=== PATIENT | female | born 1990 | race Caucasian/White ===

== ENCOUNTER 2016-07-15 10:08 | Emergency (ER) | payer MEDICAID ==
[~2016-07-15] VITALS: Ht 154.9 cm; Wt 90.9 kg
[~2016-07-15 10:08] MED LIST: CLEOCIN HC150 MG/CAP PO; CLONAZEPAM PO; DARVOCET N 101 UDTAB PO; DOXYCYCLINE 10100 MG PO; FLEXERIL10 MG PO; FLEXERIL5 MG PO; GENTAMICIN EYE D5 ML OS; KLONOPIN 0.5MG0.5 MG PO; LORTAB 5/500 501 TAB; LORTAB 5/500 501 TAB PO; MACROBID 1100 MG/CAP PO; NKDA; NO HOME MEDICATIONS; PERCOCET 325 MG1 TA2 PO; PHENERGAN 25 TA25 MG PO; PHENERGAN W/CO120 ML PO; PREDNISONE20 MG PO; SEROQUEL; SEROQUEL 2525 MG/TAB PO; SEROQUEL25 MG PO; VENTOLIN0.09 MG IH; ZITHROMAX Z PA250 MG PO; [UNRECOGNIZED DRUG - OTHER]
[2016-07-15 10:18] VITALS: BP 116/81; PULSE 97; TEMP 98.3
== END 2016-07-15 12:03 | disposition home or self-care (01) ==
LOC: COL.ER 10:08
DX: S63.92XA Sprain of unspecified part of left wrist and hand, initial encounter (principal); M25.552 Pain in left hip; W17.89XA Other fall from one level to another, initial encounter; J03.90 Acute tonsillitis, unspecified

== ENCOUNTER 2016-07-19 07:54 | Emergency (ER) | payer MEDICAID ==
[~2016-07-19] VITALS: Ht 154.9 cm; Wt 100.0 kg
[2016-07-19 07:57] VITALS: TEMP 98.3
[2016-07-19] MEDS ORDERED: MIRENA52 MG IY (08:02)
[2016-07-19 08:30] VITALS: BP 114/82; PULSE 98
== END 2016-07-19 08:40 | disposition home or self-care (01) ==
LOC: COL.ER 07:54
DX: J06.9 Acute upper respiratory infection, unspecified (principal); B34.9 Viral infection, unspecified; R05 Cough; F17.210 Nicotine dependence, cigarettes, uncomplicated; F32.9 Major depressive disorder, single episode, unspecified

== ENCOUNTER 2016-09-09 19:51 | Emergency (ER) | payer MEDICAID ==
[~2016-09-09] VITALS: Ht 154.9 cm; Wt 104.5 kg
[~2016-09-09 19:51] MED LIST changes: +MIRENA52 MG IY
[2016-09-09 19:54] VITALS: BP 117/75; TEMP 97.4
[2016-09-09] MEDS ORDERED: PREDNISONE20 MG PO (20:17)
[2016-09-09] MEDS ORDERED: ZITHROMAX 250M250 MG PO (20:17)
[2016-09-09 20:45] VITALS: PULSE 108
== END 2016-09-09 20:45 | disposition home or self-care (01) ==
LOC: COL.ER 19:51
DX: J20.9 Acute bronchitis, unspecified (principal); J01.90 Acute sinusitis, unspecified
CPT/HCPCS: J7512

== ENCOUNTER 2016-11-07 17:56 | Emergency (ER) | payer MEDICAID ==
[~2016-11-07] VITALS: Ht 154.9 cm; Wt 97.3 kg
[~2016-11-07 17:56] MED LIST changes: +ZITHROMAX 250M250 MG PO
[2016-11-07 17:59] VITALS: TEMP 99.6
[2016-11-07 19:18] VITALS: BP 128/78; PULSE 87
== END 2016-11-07 19:20 | disposition home or self-care (01) ==
LOC: COL.ER 17:56
DX: S93.402A Sprain of unspecified ligament of left ankle, initial encounter (principal); S63.92XA Sprain of unspecified part of left wrist and hand, initial encounter; S30.0XXA Contusion of lower back and pelvis, initial encounter; F17.210 Nicotine dependence, cigarettes, uncomplicated; W10.9XXA Fall (on) (from) unspecified stairs and steps, initial encounter; Y92.009 Unspecified place in unspecified non-institutional (private) residence as the place of occurrence of the external cause

== ENCOUNTER 2017-09-04 13:35 | Emergency (ER) | payer SELFPAY ==
[~2017-09-04] VITALS: Ht 154.9 cm; Wt 100.0 kg
[2017-09-04 13:40] VITALS: BP 122/82; PULSE 114; TEMP 99.9
[2017-09-04] MEDS ORDERED: ZITHROMAX500 M2 PO (14:24)
== END 2017-09-04 14:29 | disposition home or self-care (01) ==
LOC: COL.ER 13:35
DX: J03.90 Acute tonsillitis, unspecified (principal); Z90.49 Acquired absence of other specified parts of digestive tract; Z88.0 Allergy status to penicillin; Z88.2 Allergy status to sulfonamides; F17.210 Nicotine dependence, cigarettes, uncomplicated

== ENCOUNTER 2017-10-25 15:13 | Emergency (ER) | payer SELFPAY ==
[~2017-10-25] VITALS: Ht 154.9 cm; Wt 100.0 kg
[~2017-10-25 15:13] MED LIST changes: +ZITHROMAX500 M2 PO
[2017-10-25 15:17] VITALS: TEMP 98.5
[2017-10-25 15:54] LABS: BASO % 0.4 % (0.0-2.0); EOS # 0.2 (0.0-0.7); GRAN # 6.4 (1.4-6.5); GRAN % 64.9 % (42.2-75.2); HEMATOCRIT 43.8 % (37.0-47.0); HEMOGLOBIN 14.4 g/dl (12.5-16.0); LYMPH # 2.7 (1.2-3.4); LYMPH % 27.6 % (20.0-51.0); MEAN CELL VOLUME 84 fl (80.0-100.0); MEAN CORPUSCULAR HEMOGLOBIN 28 pg (27.0-31.0); MEAN CORPUSCULAR HGB CONC 33 g/dl (33.0-37.0); MEAN PLATELET VOLUME 11.2 fl (7.4-10.4); MONO # 0.5 (0.1-0.6); MONO % 4.7 % (1.7-9.3); PLATELET COUNT 261 K/mm3 (130-400); RED BLOOD COUNT 5.22 M/mm3 (4.10-5.30); REDCELL DISTRIBUTION WIDTH-CV 14.6 % (11.5-14.5)
[2017-10-25 16:06] LABS: ALBUMIN 4.1 gm/dL (3.5-5.0); BILIRUBIN,TOTAL 0.3 mg/dL (0.0-1.0); C-REACTIVE PROTEIN 1.9 mg/dL (0.0-0.9); CALCIUM 8.8 mg/dL (8.4-10.2); CREATININE, serum 0.49 mg/dL (0.52-1.25); POTASSIUM 4.1 mmol/L (3.4-5.0); TOTAL PROTEIN 7.9 gm/dL (6.4-8.2)
[2017-10-25 16:47] VITALS: BP 118/71; PULSE 69
== END 2017-10-25 16:47 | disposition home or self-care (01) ==
LOC: COL.ER 15:13
PROVIDERS: Physician Assistant
DX: R19.7 Diarrhea, unspecified (principal); R51 Headache; Z32.02 Encounter for pregnancy test, result negative; Z90.49 Acquired absence of other specified parts of digestive tract
CPT/HCPCS: J1200; J1885; J2405; J7030

== ENCOUNTER 2018-01-16 07:29 | Emergency (ER) | payer SELFPAY ==
[~2018-01-16] VITALS: Ht 154.9 cm; Wt 95.5 kg
[2018-01-16 07:32] VITALS: BP 112/77; TEMP 99.3
[2018-01-16] MEDS ORDERED: ZITHROMAX Z PA250 MG PO (07:41)
[2018-01-16 08:25] VITALS: PULSE 88
== END 2018-01-16 08:26 | disposition home or self-care (01) ==
LOC: COL.ER 07:29
DX: J02.9 Acute pharyngitis, unspecified (principal); F17.210 Nicotine dependence, cigarettes, uncomplicated; F12.90 Cannabis use, unspecified, uncomplicated
CPT/HCPCS: J1100

== ENCOUNTER 2018-04-03 18:03 | Emergency (ER) | payer SELFPAY ==
[~2018-04-03] VITALS: Ht 154.9 cm; Wt 100.0 kg
[2018-04-03 18:14] VITALS: BP 133/72; TEMP 97.6
[2018-04-03] MEDS ORDERED: MOTRIN 200200 MG/TAB PO (18:36)
[2018-04-03] MEDS ORDERED: TAMIFLU 75MG75 MG PO (19:57)
[2018-04-03 20:08] VITALS: PULSE 96
== END 2018-04-03 20:09 | disposition home or self-care (01) ==
LOC: COL.ER 18:03
DX: J10.1 Influenza due to other identified influenza virus with other respiratory manifestations (principal); J45.909 Unspecified asthma, uncomplicated; F17.210 Nicotine dependence, cigarettes, uncomplicated; F12.90 Cannabis use, unspecified, uncomplicated; Z88.0 Allergy status to penicillin; Z88.2 Allergy status to sulfonamides; Z90.49 Acquired absence of other specified parts of digestive tract

== ENCOUNTER 2018-07-16 14:32 | Emergency (ER) | payer SELFPAY ==
[~2018-07-16] VITALS: Ht 154.9 cm; Wt 102.3 kg
[~2018-07-16 14:32] MED LIST changes: +MOTRIN 200200 MG/TAB PO; +TAMIFLU 75MG75 MG PO
[2018-07-16 14:36] VITALS: TEMP 98.4
[2018-07-16] MEDS ORDERED: MIRENA52 MG IY (14:43)
[2018-07-16 15:18] LABS: STREP SCREEN NEGATIVE
[2018-07-16 16:34] VITALS: BP 111/61; PULSE 88
== END 2018-07-16 16:34 | disposition home or self-care (01) ==
LOC: COL.ER 14:32
PROVIDERS: Emergency Medicine
DX: J06.9 Acute upper respiratory infection, unspecified (principal); F17.210 Nicotine dependence, cigarettes, uncomplicated; F12.90 Cannabis use, unspecified, uncomplicated; Z90.49 Acquired absence of other specified parts of digestive tract

== ENCOUNTER 2018-09-29 00:55 | Emergency (ER) | payer SELFPAY ==
[~2018-09-29] VITALS: Ht 157.5 cm; Wt 101.8 kg
[2018-09-29 00:58] VITALS: BP 118/75; TEMP 97.7
[2018-09-29 01:41] LABS: COLLECTION METHOD CLEAN CATCH
[2018-09-29 01:51] LABS: MUCOUS Present /lpf; PH 5 (5-8); SQUAMOUS EPITHELIAL 0-2 /hpf; URINE APPEARANCE Clear; URINE BACTERIA None Seen /hpf; URINE BILIRUBIN Negative (NEGATIVE); URINE BLOOD 2+ (NEGATIVE); URINE COLOR Yellow; URINE GLUCOSE Negative (NEGATIVE); URINE KETONE Negative (NEGATIVE); URINE LEUKOCYTE ESTERASE Negative (NEGATIVE); URINE NITRATE Negative (NEGATIVE); URINE PROTEIN(semi-quant) Negative (NEGATIVE); URINE UROBILINOGEN Negative (NEGATIVE)
[2018-09-29 02:30] LABS: HIV 1/2 Antibodies Non-Reactive; HIV-1p24 Antigen Non-Reactive
[2018-09-29 02:32] VITALS: PULSE 84
== END 2018-09-29 02:18 | disposition home or self-care (01) ==
LOC: COL.ER 00:55
PROVIDERS: Emergency Medicine
DX: Z11.3 Encounter for screening for infections with a predominantly sexual mode of transmission (principal)

== ENCOUNTER 2018-10-29 09:19 | Emergency (ER) | payer SELFPAY ==
[~2018-10-29] VITALS: Ht 157.5 cm; Wt 99.9 kg
[2018-10-29 09:25] VITALS: BP 124/78
[2018-10-29 09:41] LABS: STREP SCREEN POSITIVE
[2018-10-29] MEDS ORDERED: CLEOCIN HCL300 MG PO (10:20)
[2018-10-29 10:25] VITALS: PULSE 91; TEMP 97.5
== END 2018-10-29 10:30 | disposition home or self-care (01) ==
LOC: COL.ER 09:19
PROVIDERS: Emergency Medicine
DX: J03.00 Acute streptococcal tonsillitis, unspecified (principal); F31.9 Bipolar disorder, unspecified; F41.9 Anxiety disorder, unspecified; F17.210 Nicotine dependence, cigarettes, uncomplicated
CPT/HCPCS: J1100

== ENCOUNTER 2019-03-01 12:22 | Emergency (ER) | payer SELFPAY ==
[~2019-03-01] VITALS: Ht 154.9 cm; Wt 100.0 kg
[~2019-03-01 12:22] MED LIST changes: +CLEOCIN HCL300 MG PO
[2019-03-01 12:41] VITALS: BP 113/79
[2019-03-01 14:30] VITALS: PULSE 102; TEMP 98.6
== END 2019-03-01 14:30 | disposition home or self-care (01) ==
LOC: COL.ER 12:22
DX: J11.1 Influenza due to unidentified influenza virus with other respiratory manifestations (principal); F17.210 Nicotine dependence, cigarettes, uncomplicated; J45.909 Unspecified asthma, uncomplicated; Z88.0 Allergy status to penicillin; Z88.2 Allergy status to sulfonamides